=== PATIENT | male | born 1965 | race African-American/Black ===

== ENCOUNTER 2021-10-04 09:45 | Inpatient (IN) | payer OTHER ==
[2021-10-04 11:07] VITALS: BMI 18.8
[2021-10-04] MEDS ORDERED: ACETAMINOPHEN 325 MG TABLET (FP) PO PRN ×2 (12:13)
[2021-10-04] MEDS ORDERED: BENZOCAINE/MENTHOL (CHLORASEPTIC ) LOZENGE MM PRN (12:13)
[2021-10-04] MEDS ORDERED: NICOTINE 10 MG CARTRIDGE (INHALER) IH PRN (12:13)
[2021-10-04] MEDS ORDERED: MAG HYDROX/AL HYDROX/SIMETH 30 ML UNIT-DOSE CUP PO PRN (12:13)
[2021-10-04] MEDS ORDERED: MAGNESIUM CITRATE 300 ML BOTTLE PO PRN (12:13)
[2021-10-04] MEDS ORDERED: LOPERAMIDE HCL 2 MG CAPSULE PO PRN (12:13)
[2021-10-04] MEDS ORDERED: BISMUTH SUBSALICYLATE 262 MG/15 ML BTL PO PRN (12:13)
[2021-10-04] MEDS ORDERED: IBUPROFEN 400 MG TABLET (FP) PO PRN (12:13)
[2021-10-04] MEDS ORDERED: DICYCLOMINE HCL 10 MG CAPSULE PO PRN (12:13)
[2021-10-04] MEDS ORDERED: MAGNESIUM HYDROX 2400MG/30ML ORAL SUSPENSION 30 ML CUP PO PRN (12:13)
[2021-10-04] MEDS ORDERED: chlordiazePOXIDE HCL 25 MG CAPSULE PO PRN (12:13)
[2021-10-04] MEDS ORDERED: ONDANSETRON *ODT* 4 MG TABLET SL PRN (12:13)
[2021-10-04] MEDS: PRENATAL VITAMINS W/ FOLIC ACID TABLET (FP) PO SCH (13:42)
[2021-10-04] MEDS: hydrOXYzine PAMOATE 25 MG CAPSULE (FP) PO SCH ×3 (13:42→22:28)
[2021-10-04 17:16] LABS: HEMOGLOBIN 12.2 GM/dL (11.7-16.9); MCH 25.2 pg (25.7-33.7); MCHC 32.1 g/dl (32.0-35.9); MEAN CELL VOLUME 78.7 fl (80-96); MEAN PLT VOLUME 7.9 fl (7.5-11.1); PLATELET COUNT 295 10^3/uL (134-434); RBC 4.83 M/mm3 (4.00-5.60); RDW 15.5 % (11.9-15.9); WHITE BLOOD COUNT 4.2 K/mm3 (4.0-10.0)
[2021-10-04 17:25] LABS: ALBUMIN 3.3 g/dl (3.4-5.0); BILIRUBIN,TOTAL 0.3 mg/dL (0.2-1); BLOOD UREA NITROGEN 11.7 mg/dL (7-18); CALCIUM 8.8 mg/dL (8.5-10.1); CREATININE 0.8 mg/dL (0.55-1.3); TOT PROT 6.8 g/dl (6.4-8.2)
[2021-10-04] MEDS: chlordiazePOXIDE HCL 25 MG CAPSULE PO SCH ×2 (17:59→22:28)
[2021-10-04] MEDS: IBUPROFEN 600 MG TABLET (FP) PO PRN (18:00)
[2021-10-04] MEDS: QUEtiapine FUMARATE 100 MG TABLET (FP) PO SCH (22:28)
[2021-10-04] MEDS: traZODone HCL 50 MG TABLET (FP) PO SCH (22:28)
[2021-10-04] MEDS: THIAMINE HCL 100 MG TABLET (FP) PO SCH (22:28)
[2021-10-04] MEDS: MELATONIN 5 MG TABLETS PO SCH (22:29)
[2021-10-05] MEDS: hydrOXYzine PAMOATE 25 MG CAPSULE (FP) PO SCH ×5 (06:02→23:43)
[2021-10-05] MEDS: chlordiazePOXIDE HCL 25 MG CAPSULE PO SCH ×4 (06:03→22:36)
[2021-10-05] MEDS: PRENATAL VITAMINS W/ FOLIC ACID TABLET (FP) PO SCH (10:50)
[2021-10-05] MEDS: traZODone HCL 50 MG TABLET (FP) PO SCH (22:39)
[2021-10-05] MEDS: QUEtiapine FUMARATE 100 MG TABLET (FP) PO SCH (22:39)
[2021-10-05] MEDS: METHOCARBAMOL 500 MG TABLET PO PRN (22:41)
[2021-10-05] MEDS: MELATONIN 5 MG TABLETS PO SCH (23:42)
[2021-10-05] MEDS: THIAMINE HCL 100 MG TABLET (FP) PO SCH (23:43)
[2021-10-06] MEDS ORDERED: ALBUTEROL SO4 HFA INHALER IH ONE (05:54)
[2021-10-06] MEDS: hydrOXYzine PAMOATE 25 MG CAPSULE (FP) PO SCH ×5 (05:55→22:14)
[2021-10-06] MEDS: chlordiazePOXIDE HCL 25 MG CAPSULE PO SCH ×4 (05:55→22:15)
[2021-10-06] MEDS: IBUPROFEN 600 MG TABLET (FP) PO PRN (10:23)
[2021-10-06] MEDS: PRENATAL VITAMINS W/ FOLIC ACID TABLET (FP) PO SCH (10:24)
[2021-10-06] MEDS: METHOCARBAMOL 500 MG TABLET PO PRN ×2 (10:24→22:17)
[2021-10-06] MEDS: MELATONIN 5 MG TABLETS PO SCH (22:14)
[2021-10-06] MEDS: QUEtiapine FUMARATE 100 MG TABLET (FP) PO SCH (22:14)
[2021-10-06] MEDS: traZODone HCL 50 MG TABLET (FP) PO SCH (22:14)
[2021-10-06] MEDS: THIAMINE HCL 100 MG TABLET (FP) PO SCH (22:14)
[2021-10-06] MEDS ORDERED: ALBUTEROL SO4 HFA INHALER IH PRN (23:27)
[2021-10-07] MEDS ORDERED: chlordiazePOXIDE HCL 10 MG CAPSULE PO PRN
[2021-10-07] MEDS ORDERED: chlordiazePOXIDE HCL 10 MG CAPSULE PO SCH (05:00)
[2021-10-07] MEDS: hydrOXYzine PAMOATE 25 MG CAPSULE (FP) PO SCH (05:27)
[2021-10-07 08:49] VITALS: BP 141/97; PULSE 99; RESP 18; TEMP 97.1
[2021-10-07 09:51] LABS: CALCIUM 8.9 mg/dL (8.5-10.1)
[2021-10-07 09:52] LABS: BLOOD UREA NITROGEN 8.2 mg/dL (7-18)
[2021-10-07 09:54] LABS: CREATININE 0.7 mg/dL (0.55-1.3)
[2021-10-08] MEDS ORDERED: chlordiazePOXIDE HCL 10 MG CAPSULE PO SCH (05:00)
[2021-10-09] MEDS ORDERED: chlordiazePOXIDE HCL 10 MG CAPSULE PO ONE (05:00)
== END 2021-10-07 09:23 | disposition left against medical advice (07) | DRG 894 ==
LOC: YASAS 09:45 → SUATTDRO 09:45 → Y3N 12:52
PROVIDERS: ADMIT Allergy & Immunology; ATTEND Surgery
PROC: HZ2ZZZZ Detoxification Services for Substance Abuse Treatment (ICD-10-PCS; principal; 2021-10-04)
DX: F10.230 Alcohol dependence with withdrawal, uncomplicated (principal); F14.10 Cocaine abuse, uncomplicated; F17.210 Nicotine dependence, cigarettes, uncomplicated; F19.24 Other psychoactive substance dependence with psychoactive substance-induced mood disorder; J45.20 Mild intermittent asthma, uncomplicated; G47.00 Insomnia, unspecified; Z86.718 Personal history of other venous thrombosis and embolism; Z91.14 Patient's other noncompliance with medication regimen; Z86.59 Personal history of other mental and behavioral disorders; Z56.0 Unemployment, unspecified; Z59.00 Homelessness unspecified
CPT/HCPCS: 36415; 80048; 80053; 84450; 85027; 86780; 87811; C9803-CS; U0003; U0005